=== PATIENT | female | born 1945 | race Hispanic/Latino ===

== ENCOUNTER → 2018-06-02 | Day surgery (SDC) | payer MEDICARE, OTHER ==
[2018-06-01 14:04] LABS: BASOPHILS % 0.8 % (0.0-1.0); EOSINOPHILS # (AUTO) 0.2 (0.0-0.4); EOSINOPHILS % 4.6 % (0.0-6.0); HEMOGLOBIN 11.4 g/dL (12.0-16.0); LYMPHOCYTES # (AUTO) 1.3 (1.0-3.2); LYMPHOCYTES % 35.6 % (18.0-39.1); MEAN CORPUSCULAR HEMOGLOBIN 32.8 pg (28-32); MEAN CORPUSCULAR HGB CONC 33.5 g/dL (31-35); MEAN CORPUSCULAR VOLUME 97.7 fL (81-99); MONOCYTES # (AUTO) 0.6 (0.2-0.8); MONOCYTES % 14.9 % (4.4-11.3); NEUTROPHILS # (AUTO) 1.6 (2.1-6.9); NEUTROPHILS % 43.8 % (38.7-80.0); PLATELET COUNT 126 x10e3/uL (140-360); RED BLOOD COUNT 3.48 x10e6/uL (3.6-5.1)
[~2018-06-02] MED LIST: HYOSCYAMINE SULFATE 0.5 MG/ML AMP ONE; LATANOPROST2.5 ML OP; LEVOTHYROXINE112 MCG PO; LEVOTHYROXINE50 MCG PO; LIDOCAINE HCL 2% LOCAL INJ 5 ML SDV VIAL INJ ONE; LORATADINE10 MG PO; MIDAZOLAM HCL 2 MG/2 ML VIAL ONE; PINDOLOL5 MG; PROPOFOL IV EMULSION 10 MG/ML 50 ML VIAL ONE; SERTRALINE HCL100 MG PO; SIMVASTATIN20 MG PO
== END | disposition home or self-care (01) ==
LOC: OR 10:41
PROVIDERS: ATTEND Internal Medicine Gastroenterology
DX: Z12.11 Encounter for screening for malignant neoplasm of colon (principal); K75.4 Autoimmune hepatitis; Z95.0 Presence of cardiac pacemaker; I10 Essential (primary) hypertension; Z96.652 Presence of left artificial knee joint; E03.9 Hypothyroidism, unspecified
CPT/HCPCS: 36415; 45378; 85025; J1980; J2001; J2250